=== PATIENT | male | born 1995 | race Hispanic/Latino ===

== ENCOUNTER 2021-01-06 15:50 | Emergency (ER) | payer OTHER, SELFPAY ==
--- NOTE | ~2021-01-06 | XR_ITS ---
EXAMINATION: XR chest 2V DATE: 01/06/2021 16:53 INDICATION: Epigastric abdominal pain. TECHNIQUE: Frontal and lateral views of the chest were obtained. COMPARISON: None. FINDINGS: The chest demonstrates clear lungs without pneumonia, pleural effusion, or pneumothorax. Th e heart size is normal. IMPRESSION: 1. No acute cardiopulmonary disease. Reviewed, dictated and finalized at location A.
[2021-01-06 15:54] VITALS: BP 138/63; PULSE 84; RESP 20; TEMP 35.8; O2SAT 98
--- NOTE | 2021-01-06 15:57 | ECG_ITS ---
Measurements Intervals [place] Rate: 86 P: 50 AK: 162 QRS: 21 QRSD: 116 T: 14 QT: 359 QTc: 432 Interpretive Statements SINUS RHYTHM WITH SINUS ARRHYTHMIA INCOMPLETE RIGHT BUNDLE BRANCH BLOCK BORDERLINE T WAVE ABNORMALITY- INFERIOR LEADS BASELINE ARTIFACT- V4 BORDERLINE ECG Electronically Signed On 01-06-2021 17:19:17 CDT by Andrew Garner D.O.
[2021-01-06 16:27] LABS: Basophils Percent Auto 0.3 % (0.2-1.2); Eosinophils Absolute Auto 0.1 K/mm3 (0-0.3); Hematocrit 47.3 % (42.0-52.0); Hemoglobin 15.5 g/dL (14.0-18.0); Immature Granulocyte Absolute 0.01 K/mm3 (0.00-0.031); Immature Granulocyte Percent A 0.2 % (0-0.5); Lymphocytes Absolute Auto 2.77 K/mm3 (0.9-3.2); Lymphocytes Percent Auto 42.8 % (18.3-44.2); Mean Corpuscular HGB Conc 32.8 g/dl (32-36); Mean Corpuscular Hemoglobin 31.9 pg (26-34); Mean Corpuscular Volume 97.3 fl (80-100); Mean Platelet Volume 11.2 fl (7.4-10.4); Monocytes Absolute Auto 0.4 K/mm3 (0.1-0.6); Monocytes Percent Auto 6.8 % (2.6-8.5); Neutrophils Absolute Auto 3.1 K/mm3 (1.3-6.7); Neutrophils Percent Auto 47.9 % (45.5-73.1); Platelet Count Result 255 k/mm3 (150-375); Red Blood Count 4.86 M/mm3 (4.6-6.20); White Blood Count 6.5 K/mm3 (4.5-10.0)
[2021-01-06 16:39] LABS: Anion Gap 11 mmol/L (8-16); Blood Urea Nitrogen 13 mg/dL (9-20); Calcium 9.4 mg/dL (8.4-10.2); Carbon Dioxide 26 mmol/L (22-30); Chloride 102 mmol/L (98-107); Estimated CRCL calculation 95 ml/min; Estimated Glomerular Filt Rate > 60; Glucose 155 mg/dL (65-110); Potassium 3.5 mmol/L (3.4-5.0); Sodium 139 mmol/L (137-145)
[2021-01-06 16:43] LABS: Prothrombin Time 12.9 Seconds (11.1-14.7)
[2021-01-06 16:44] LABS: Partial Thromboplastin Time 25.8 SECONDS (22.3-36.8)
[2021-01-06 16:48] LABS: Troponin I < 0.012 ng/mL (0.000-0.034)
[2021-01-06 17:20] VITALS: PULSE 86
[2021-01-06 17:21] VITALS: BP 136/80; PULSE 86; RESP 16; O2SAT 100
--- NOTE | 2021-01-06 17:58 | ED.CHESTPAIN ---
HPI - Chest Pain General Chief Complaint: Chest Pain Stated Complaint: abd pain Time Seen by Provider: 01/06/21 17:27 History of Present Illness HPI narrative: Patient is a 25-year-old male with history of hypertension who presents to the ER with epigastric pain. Patient reports that occurred about 1 hour after eating lentil soup and some fried eggs. He felt cramping and bloating within his epigastrium that moving into his chest and also radiated to his back and right shoulder. Associated with some sweats and nausea. He also noted on his watch that his heart rate was 46 bpm. He did not lose consciousness. Symptoms lasted no longer than 15 minutes. Cannot identify any alleviating factors. Related Data Home Medications Medication Instructions Recorded Confirmed losartan 100 mg PO DAILY 03/02/20 03/02/20 Allergies Allergy/AdvReac Type Severity Reaction Status Date / Time No Known Drug Allergies AdvReac Other Verified 01/06/21 17:19 Review of Systems Review of Systems: All systems reviewed & are unremarkable except as noted in HPI and below Constitutional: Constitutional: Denies fever(s) and Denies weakness Comments: Sweats ENT: Denies nasal congestion and Denies sore throat Cardiovascular: Cardiovascular: Reports chest pain, Denies rapid heart rate and Denies radiating jaw, neck or arm pain Respiratory: Respiratory: Denies cough, Denies dyspnea and Denies wheezing Gastrointestinal: Gastrointestinal: Reports abdominal pain, Reports bloating, Denies diarrhea, Reports nausea and Denies vomiting Musculoskeletal: Musculoskeletal: Denies back pain and Denies muscle cramps PMFSH Past Medical History Medical History (Updated 01/06/21 @ 18:46 by Ángel Ballesteros MD) Hypertension Surgical History Surgical History (Updated 01/06/21 @ 18:00 by Ángel Ballesteros MD) No pertinent past surgical history Social History Social History Smoking status: Never smoker Second hand tobacco smoke exposure: No Alcohol intake: current Drinks per week: 3 Alcohol use details: SOCIAL Substance use: never Substance use type: does not use Spiritual care concerns: No Exam Narrative: GENERAL: Well-appearing, well-nourished, and in no acute distress. HEAD: Normocephalic, atraumatic. CHEST: Clear to auscultation. No respiratory distress. HEART: Regular rate and rhythm. Normal peripheral pulses. ABDOMEN: Soft, nontender, nondistended. EXTREMITIES: Normal range of motion. No edema. SKIN: Warm, dry, no rash. NEURO: Alert and oriented x3. PSYCH: Normal mood and affect. Course Vital Signs Vital signs: Vital Signs Temperature 96.5 F L 01/06/21 15:54 Pulse Rate 84 01/06/21 15:54 Respiratory Rate 20 01/06/21 15:54 Blood Pressure 138/63 01/06/21 15:54 Pulse Oximetry 98 01/06/21 15:54 Temperature 96.5 F L 01/06/21 15:54 Pulse Rate 82 01/06/21 18:16 Respiratory Rate 18 01/06/21 18:16 Blood Pressure 144/85 H 01/06/21 18:16 Pulse Oximetry 100 01/06/21 18:16 MDM - Chest Pain Lab Data Result diagrams: 01/06/21 16:04 01/06/21 16:04 Labs: Lab Results 01/06/21 01/06/21 01/06/21 Range/Units 16:04 16:04 16:04 WBC 6.5 (4.5-10.0) K/mm3 RBC 4.86 (4.6-6.20) M/mm3 Hgb 15.5 (14.0-18.0) g/dL Hct 47.3 (42.0-52.0) % MCV 97.3 (80-100) fl MCH 31.9 (26-34) pg MCHC 32.8 (32-36) g/dl RDW 13.0 (11.5-14.5) % Plt Count 255 (150-375) k/mm3 MPV 11.2 H (7.4-10.4) fl Immature Gran % (Auto) 0.2 (0-0.5) % Neut % (Auto) 47.9 (45.5-73.1) % Lymph % (Auto) 42.8 (18.3-44.2) % Frio % (Auto) 6.8 (2.6-8.5) % Eos % (Auto) 2.0 (0-4.4) % Baso % (Auto) 0.3 (0.2-1.2) % Lymph # (Auto) 2.77 (0.9-3.2) K/mm3 Frio # (Auto) 0.4 (0.1-0.6) K/mm3 Eos # (Auto) 0.1 (0-0.3) K/mm3 Baso # (Auto) 0.0 (0.0-0.1) K/mm3 Abs Immat Gran (auto) 0.01 (0.00-0.031) K/mm3 Absolute Ne
[2021-01-06 18:16] VITALS: BP 144/85; PULSE 82; RESP 18; O2SAT 100
[2021-01-06 18:21] LABS: Alanine Aminotransferase 37 U/L (4-50); Albumin Level 4.8 g/dL (3.5-5.1); Alkaline Phosphatase 98 U/L (38-126); Aspartate Amino Transferase 48 U/L (17-59); Bilirubin,Total 0.7 mg/dL (0.2-1.3); Lipase 82 U/L (23-300)
[2021-01-06 18:52] VITALS: BP 136/62; PULSE 101; RESP 18; O2SAT 100
== END 2021-01-06 18:53 | disposition home or self-care (01) ==
PROVIDERS: Emergency Provider Emergency Medicine; PCP Internal Medicine
DX: R10.13 Epigastric pain (principal); I10 Essential (primary) hypertension; I45.10 Unspecified right bundle-branch block; R94.31 Abnormal electrocardiogram [ECG] [EKG]
CPT/HCPCS: 36415; 71046; 80048; 80076; 83690; 84484; 85025; 85610; 85730; 93005; 99284

== ENCOUNTER → 2021-02-16 13:23 | Outpatient (CLI) | payer OTHER, SELFPAY ==
--- NOTE | ~2021-02-16 | XR_ITS ---
XR lumbar spine min 4V DATE: 02/16/2021 13:35 INDICATION: Back pain TECHNIQUE: AP, lateral, coned lateral lumbosacral views COMPARISON: None FINDINGS: Normal alignment of the lumbar spine. No fracture or bone destruction or spondylolisthesis. The lumbar pedicles are intact. The sacroiliac joints appear normal. IMPRESSION: No significant abnormality Reviewed, dictated and finalized at location A. IMPRESSION: No significant abnormality
== END ==
PROVIDERS: PCP Family Medicine; Visit Provider Family Medicine
DX: M54.9 Dorsalgia, unspecified (principal)
CPT/HCPCS: 72110

== ENCOUNTER 2021-03-20 01:18 | Day surgery (SDC) | payer OTHER, SELFPAY ==
[2021-03-16 10:55] VITALS: BMI 26.6
--- NOTE | 2021-03-16 11:07 | PC.NURSE ---
Report to the Outpatient Waiting Room, entrance under the green pavilion located off [facility], at time 1200 on date 03/20/21. OR Time: 1400. - You and your visitor will be asked a series of questions to screen for COVID 19 for your protection. - A mask is required within the hospital. - Only one visitor is allowed at this time. Patient visitors will be guided where to wait when not with patient. Preoperative COVID Testing Requirements: No COVID Test needed if: (proof is required; if not received patient will have Rapid Test prior to entry) - Patient has received COVID Vaccine at least 14 days prior to procedure date or - Patient has positive COVID test result within last 90 days of surgery date. COVID Test needed if above criteria is not met If not COVID vaccinated a COVID test must be conducted within 72 hours of surgery and patient is asked to isolate self from time of testing until procedure. You will go to the [facility] for your COVID testing. The [facility] is located at the corner of [address] [facility]. You will only be called if COVID results are positive and your surgeon may reschedule your elective surgery date. Patients may have clear liquids (water, carbonated beverages, clear teas, apple juice) until 3 hours prior to surgery with a maximum of 20 ounces. - No food from midnight until time of surgery - Infants may have breast milk until 4 hours before surgery, infant formula 6 hours prior to surgery. - Children will be allowed to drink immediately following surgery. If applicable, please bring a bottle or sippy cup to assist with drinking. Juice, water, soda, and popsicles are readily available. For infants on formula, please bring formula the day of surgery. Pacifiers are allowed. Take the following medications with a SIP of water the morning of surgery: N/A Medications to discontinue per physician: N/A Date to take last dose: N/A Please no make-up, nail kyrgyz, hairspray, perfume, deodorant, or body powder the day of surgery. No jewelry (including any body piercings) or valuables the day of surgery, leave them at home. Please take a shower or bath the night before, or the morning of, surgery with an antibacterial soap. Wear comfortable, loose fitting clothing. Children are encouraged to wear pajamas. - Jewelry must be removed prior to entering the operating room. Rings and piercings that are not removed may be cut off. - The hospital will not accept responsibility for valuables. - Please leave all valuables, including medications, at home the day of surgery. If you are going home after surgery, a licensed dedicated driver must drive you home. - NO public transportation without another adult. - We recommend that an adult stay with you for 24 hours following discharge. - We also recommend that you do not drive, make important decision, drink alcoholic beverages, or take any drugs that were not prescribed by your health care provider for at least 24 hours after your discharge time. For Pediatric surgeries, we recommend two adults accompany the child home (only one inside the building at this time). Follow any additional instructions given to you from your surgeon. Telephone instructions given to JAMES GRULLON and asked if any additional questions and then verbalized understanding. Patient advised to call surgeon office or pre surgery nurse liaison [phone] if any additional questions.
--- NOTE | 2021-03-19 13:59 | WPDANESEPPF ---
Anes - Initial Pre Proc Eval Procedure: Operation Date: 03/20/21 14:00 Proposed Procedures p CO2 Laser Penile Condyloma - Angelo Sandy MD Date/Time: 03/19/21 13:59 Surgeon: Angelo Sandy MD Pre Op Diagnosis: Penile Condyloma Patient Data Age: 25 Gender: M Height: 1.73 m Weight: 79.38 kg Allergies Allergy/AdvReac Type Severity Reaction Status Date / Time No Known Drug Allergies AdvReac Other Verified 03/16/21 10:54 Home Medications Medication Instructions Recorded Confirmed Type losartan 100 mg tablet 100 mg PO DAILY #30 tablet 02/15/21 03/16/21 Rx Patient hx anesthesia problems: none Family hx anesthesia problems: none Results Review: All pre-operative results and documents have been reviewed as part of the pre-operative evaluation. [facility] Past Medical History Medical History (Updated 03/19/21 @ 13:59 by Hero Moraes MD) Chronic lower back pain Hyperlipidemia Hypertension Overweight (BMI 25.0-29.9) Surgical History Surgical History No pertinent past surgical history Family History Family History Mother Hypertension Thyroid disorder Grandparent Hypertension Grandparent Diabetes mellitus Social History Social History Smoking status: Never smoker Second hand tobacco smoke exposure: No Alcohol intake: current Drinks per week: 4 Alcohol use details: SOCIAL Substance use: never Substance use type: does not use Living arrangements: alone 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 Informed Consent: The patient's anesthetic plan and its attendant risks and benefits were discussed with the patient/family/POA. Questions were solicited and answers provided to the satisfaction of the patient/family/POA.
[2021-03-20] VITALS (8 sets, daily range): BP systolic 93–149; BP diastolic 42–86; PULSE 65–87; RESP 13–20; TEMP 36.2–36.7; O2SAT 95–100
--- NOTE | 2021-03-20 12:12 | WPDHPUPDATE1 ---
History and Physical Update Update Date/Time: 03/20/21 12:12 History and Physical has been reviewed, including an updated exam of the patient. There are NO changes in the patient's condition. Risks, benefits, and alternatives have been discussed and questions answered. Patient agrees to proceed with procedure. Proceed with co2 laser of penile condyloma
[2021-03-20] MEDS: LACTATED RINGERS 1,000 ML 30 ML IV CONT ×2 (12:15→15:30)
[2021-03-20] MEDS: ceFAZolin 2 GM/D5W 50 ML 2 GM/50 ML BAG IVPB (14:34)
--- NOTE | 2021-03-20 15:00 | P.OP_ITS ---
Procedure Note - Detailed Date of Procedure 03/20/21 Pre-op Diagnosis Penile Condyloma Post-op Diagnosis same Procedure Performed CO2 laser to the penile condyloma Surgeon Angelo Sandy MD Anesthesia general Description of Procedure Patient is taken to the operative suite and correctly identified. Once anesthesia was obtained the condyloma were visualized. He had approximately 8- 10 lesions which we used a CO2 laser on. We then placed a Silvadene cream on those areas. He tolerated procedure well without any complications and was taken recovery room stable condition. He will follow-up in 2-3 weeks time. Drains No Packing No Pathology none sent Complications No immediate complications Condition stable Disposition PACU
== END 2021-03-20 16:29 | disposition home or self-care (01) ==
PROVIDERS: PCP Family Medicine; Visit Provider Urology
PROC: (CPT 54057; principal; 2021-03-20 14:00)
DX: A63.0 Anogenital (venereal) warts (principal); I10 Essential (primary) hypertension; E78.5 Hyperlipidemia, unspecified
CPT/HCPCS: 54057; A9270; J0690; J1100; J2250; J2405; J2704; J3010; J7120

== ENCOUNTER 2023-02-14 11:14 | Outpatient (CLI) | payer OTHER, SELFPAY ==
[2023-02-14 19:50] LABS: Alanine Aminotransferase 56 U/L (6-50); Albumin Level 4.4 g/dL (3.5-5.1); Alkaline Phosphatase 74 U/L (38-126); Anion Gap 7 mmol/L (8-16); Aspartate Amino Transferase 56 U/L (17-59); Bilirubin,Total 0.5 mg/dL (0.2-1.3); Blood Urea Nitrogen 21 mg/dL (9-20); Calcium 8.9 mg/dL (8.4-10.2); Carbon Dioxide 30 mmol/L (22-30); Chloride 102 mmol/L (98-107); Cholesterol 201 mg/dL (0-200); Estimated Glomerular Filt Rate > 60; Glucose 83 mg/dL (65-110); HDL Direct 47 mg/dL; Sodium 139 mmol/L (137-145); Triglycerides 63 mg/dL (<150)
[2023-02-14 20:01] LABS: LDL Cholesterol Direct 124 mg/dL
== END 2023-02-14 11:15 | disposition home or self-care (01) ==
LOC: ANHGOSHLAB 11:16
PROVIDERS: PCP Family Medicine; Visit Provider Family Medicine
DX: Z13.220 Encounter for screening for lipoid disorders (principal); I10 Essential (primary) hypertension
CPT/HCPCS: 36415; 80053; 80061

== ENCOUNTER 2024-01-02 11:06 | Outpatient (CLI) | payer OTHER, SELFPAY ==
--- NOTE | ~2024-01-02 | XR_ITS ---
AP view of the pelvis and AP and lateral views of the bilateral hips Clinical history: Pain Findings: No acute fracture or dislocation is seen. Osseous alignment is anatomic. Bilateral hip and SI joint spaces are preserved. Soft tissues are unremarkable. Impression: No significant abnormality is seen. Reviewed, dictated and finalized at [facility]. Impression: No significant abnormality is seen.
--- NOTE | ~2024-01-02 | XR_ITS ---
Lumbosacral Spine: AP, oblique, and lateral views, with neutral, flexion, and extension positioning Clinical History: Pain Findings: The normal lordotic curve is maintained. The vertebral bodies and posterior elements are i ntact. There is mild degenerative disc narrowing at L4-L5 and L5-S1. There is moderate facet arthropa thy at L4-L5 and L5-S1. No instability evident on flexion or extension. The sacroiliac joints are nor lorin outlined. Impression: Degenerative spondylosis of the lower lumbar spine, as detailed above. Reviewed, dictated and finalized at location M. Impression: Degenerative spondylosis of the lower lumbar spine, as detailed above.
== END 2024-01-02 11:07 | disposition home or self-care (01) ==
LOC: MICIMG 11:08
PROVIDERS: PCP Family Medicine; Visit Provider Anesthesiology Pain Medicine
DX: M47.896 Other spondylosis, lumbar region (principal)
CPT/HCPCS: 72114; 73521

== ENCOUNTER 2024-01-28 11:07 | Outpatient (CLI) | payer OTHER, SELFPAY ==
--- NOTE | 2024-01-28 12:00 | NEURO_ITS ---
Impression: # Complains of right lower extremity pain. # Normal motor/sensory Nerve Conduction Study. # Normal needle/EMG exam. # Clinical correlation recommended. Nerve Conduction Studies Anti Sensory Summary Table Stim Site NR Peak (ms) P-T Amp (?V) Site1 Site2 Delta-P (ms) Dist (cm) Brendan (m/s) Right Sup Fibular Anti Sensory (Ant Lat Mall) 14 cm 2.9 26.4 14 cm Ant Lat Mall 2.9 16.0 55 Right Sural Anti Sensory (Lat Mall) Calf 3.7 23.2 Calf Lat Mall 3.7 17.0 46 Motor Summary Table Stim Site NR Onset (ms) O-P Amp (mV) Site1 Site2 Delta-0 (ms) Dist (cm) Brendan (m/s) Right Peroneal Motor (Vastus Med) Ankle 3.8 2.5 Popit Ankle 7.7 40.0 52 Popit 11.5 2.4 Right Tibial Motor (Abd Roberts Brev) Ankle 4.1 8.7 Knee Ankle 7.9 41.0 52 Knee 12.0 9.5 F Wave Studies NR F-Lat (ms) L-R F-Lat (ms) Right Peroneal (Mrkrs) (EDB) 46.34 Right Tibial (Mrkrs) (Abd Hallucis) 47.89 EMG Side Muscle Nerve Root Ins Act Fibs Amp Dur Recrt Comment Right AntTibialis Dp Br Fibular L4-5 Nml Nml Nml Nml Nml Right Gastroc Tibial S1-2 Nml Nml Nml Nml Nml Right Fibularis Long Sup Br Fibular L5-S1 Nml Nml Nml Nml Nml Right Flex Dig Long Tibial L5-S2 Nml Nml Nml Nml Nml Right Ext Dig Brev Dp Br Fibular L5, S1 Nml Nml Nml Nml Nml Right QuadratusFem QuadFemoris L4-5, S1 Nml Nml Nml Nml Nml MTDD
== END 2024-01-28 11:08 | disposition home or self-care (01) ==
LOC: ANHNEURO 11:07
PROVIDERS: PCP Family Medicine; Visit Provider Anesthesiology Pain Medicine
DX: M54.17 Radiculopathy, lumbosacral region (principal); M54.9 Dorsalgia, unspecified
CPT/HCPCS: 95886; 95908

== ENCOUNTER 2024-04-22 09:37 | Outpatient (CLI) | payer OTHER, SELFPAY ==
--- NOTE | ~2024-04-22 | MR_ITS ---
MRI of the right hip Clinical history: Pain Technique: Coronal T1-weighted, T2-weighted, and proton-density fat-sat images, and axial T1-weighted and proton-density fat-sat images were acquired through the pelvis. Coronal T2-weighted images and c oronal, axial, and sagittal proton-density fat-sat images were acquired through the right hip. Findings: There is no fracture or avascular necrosis of either hip. There is focal marrow edema at th e anterior right femoral head neck junction. There is osteitis pubis. No other abnormal marrow signal seen in the pelvic bones or proximal femora. There is mild chondral malacia the symmetric about hip joints. There is mild bony prominence of the a nterior right femoral head neck junction. No joint effusion. No right acetabular labral tear identifi ed. Visualized musculature about the hip is unremarkable. No muscle atrophy or edema. The tendons are int act. No bursitis. No soft tissue mass or fluid collection. IMPRESSION: Focal marrow edema at the anterior right femoral head neck junction with possible mild bony prominenc e in this region. Findings could reflect sequela of cam-type femoral acetabular impingement, but no l abral tear seen. Focal contusion is a potential alternative consideration. Reviewed, dictated and finalized at location . N MANAGER IMPRESSION: Focal marrow edema at the anterior right femoral head neck junction with possib le mild bony prominence in this region. Findings could reflect sequela of cam-t ype femoral acetabular impingement, but no labral tear seen. Focal contusion is a potential alternative consideration.
== END 2024-04-22 09:38 | disposition home or self-care (01) ==
PROVIDERS: PCP Family Medicine; Visit Provider Anesthesiology Pain Medicine
DX: M87.051 Idiopathic aseptic necrosis of right femur (principal); M54.50 Low back pain, unspecified; G89.29 Other chronic pain; R60.9 Edema, unspecified
CPT/HCPCS: 73721